=== PATIENT | female | born 1995 | race Asian ===

== ENCOUNTER 2017-04-09 09:49 | Emergency (ER) | payer BC ==
[~2017-04-09] VITALS: Ht 152.4 cm; Wt 60.0 kg
[~2017-04-09 09:49] MED LIST: ACET500C5 PO; DOCU-144 PO
[2017-04-09 09:55] VITALS: Ht 152.4 cm; Wt 60.0 kg
--- NOTE | 2017-04-09 10:16 | ERD ---
ER Documentation Chief Complaint Date/Time DATE: 04/09/17 TIME: 10:13 Chief Complaint lower back abcess HPI 21-year-old female lower back pain and swelling for the past week. She has some redness that is localized. She has never had this before. She denies fevers or chills. ROS All systems reviewed and are negative except as per history of present illness. Medications Home Meds Active Scripts Ibuprofen* (Motrin*) 600 Mg Tab, 600 MG PO Q6, #30 TAB Prov:FRANK COUGHLIN PA-C 04/09/17 Sulfamethoxazole/Trimethoprim* (Bactrim Ds* Tablet) 1 Each Tablet, 1 TAB PO BID , #14 TAB Prov:FRANK COUGHLIN PA-C 04/09/17 Cephalexin* (Keflex*) 500 Mg Capsule, 500 MG PO QID for 7 Days, CAP Prov:FRANK COUGHLIN PA-C 04/09/17 Docusate Sodium* (Colace*) 100 Mg Capsule, 100 MG PO TID, #30 CAP Prov:FRANK COUGHLIN PA-C 07/08/16 Acetaminophen* (Tylophen*) 500 Mg Capsule, 1 CAP PO Q6H Y for PAIN AND OR ELEVATED TEMP, #20 CAP Prov:FRANK COUGHLIN PA-C 07/08/16 Allergies Allergies: Coded Allergies: No Known Allergy (Unverified , 04/09/17) PMhx/Soc Medical and Surgical Hx: pt denies Medical Hx, pt denies Surgical Hx Hx Alcohol Use: No Hx Substance Use: No Hx Tobacco Use: No Smoking Status: Never smoker Physical Exam Vitals Vital Signs Date Time Temp Pulse Resp B/P Pulse Ox O2 Delivery O2 Flow Rate FiO2 04/09/17 09:55 98.1 71 18 111/71 99 Physical Exam General: Well-developed, well-nourished. The patient appears in no acute distress. HEENT: Head is normocephalic, atraumatic. No scleral icterus. Neck: Supple. Nontender. Lungs: Clear to auscultation. Normal air movement. Heart: Regular rate and rhythm. S1 and S2 are normal. No murmurs, gallops, or rubs. Abdomen: Nondistended. Extremities: No clubbing or cyanosis. Moving extremities x 4. No weakness. Neurologic: Alert and oriented 3. No focal deficits. Normal speech and gait. Skin: 4 cm area of induration and fluctuance over the sacral area, tenderness to palpation, there is no streaking. Results 24 hrs Current Medications Medications (Trade) Dose Ordered Sig/Kris Route PRN Reason Start Time Stop Time Status Last Admin Dose Admin Lidocaine (Xylocaine 1% (Mdv) 20 ml) 20 ml ONCE ONCE SC 04/09/17 10:30 04/09/17 10:31 DC Procedures/MDM Abscess Incision and Drainage with irrigation by me: Location: Pilonidal cyst Anesthesia: Local 1% Lidocaine Technique: Irrigated. Disrupted loculations w/ instrumentation Packing: iodoform Complications: Neurovascularly intact post procedure 48 hour wound check. Scar minimization instructions given. Patient's skin symptoms have stabilized while they have been evaluated in the department and are appropriate for outpatient care and work up. Exam and w/u not consistent w/ sepsis, deep space infection, or foreign body. Medical decision makin-year-old female comes in with a pilonidal abscess, that was incised and drained in the emergency department today. There is large amount of purulent material that was removed and packing was placed. He she is to take antibiotics and ibuprofen, it was discussed that this may be a recurrent issue that she has never had this before. I have asked her to follow- up with her primary care doctor to seek a referral to see general surgery for reevaluation. Departure Diagnosis: Primary Impression: Pilonidal abscess Additional Impression: Encounter for incision and drainage procedure Condition: FRANK Evangelista PA-C Apr 09, 2017 10:16
[2017-04-09] MEDS ORDERED: LIDOCAINE 1% (MDV) 20 ML INJ SC ONE (10:30)
[2017-04-09] MEDS ORDERED: IBUP-1542 PO (10:40)
[2017-04-09] MEDS ORDERED: SULF1TAB31 PO (10:40)
[2017-04-09] MEDS ORDERED: CEPH-443 PO (10:40)
== END 2017-04-09 11:09 | disposition home or self-care (01) ==
LOC: FTE 09:49
DX: L05.01 Pilonidal cyst with abscess (principal)
CPT/HCPCS: 10080; Z7502; Z7610

== ENCOUNTER 2017-04-11 12:03 | Emergency (ER) | payer BC ==
[~2017-04-11] VITALS: Ht 167.6 cm; Wt 98.0 kg
[~2017-04-11 12:03] MED LIST changes: +CEPH-443 PO; +IBUP-1542 PO; +SULF1TAB31 PO
[2017-04-11 12:12] VITALS: Ht 167.6 cm; Wt 98.0 kg
--- NOTE | 2017-04-11 14:42 | ERD ---
ER Documentation Chief Complaint Date/Time DATE: 04/11/17 TIME: 13:42 Chief Complaint Patient here for a recheck Pilonidal cyst HPI 21-year-old female presented ED with wound check and dressing change after incision and drainage of her pilonidal abscess 2 days ago. Patient stated that she is continued to have a pain in the area, as well as a lot of drainage from the wound. Denies fever or chills. ROS All systems reviewed and are negative except as per history of present illness. Medications Home Meds Active Scripts Ibuprofen* (Motrin*) 600 Mg Tab, 600 MG PO Q6, #30 TAB Prov:FRANK COUGHLIN PA-C 04/09/17 Sulfamethoxazole/Trimethoprim* (Bactrim Ds* Tablet) 1 Each Tablet, 1 TAB PO BID , #14 TAB Prov:FRANK COUGHLIN PA-C 04/09/17 Cephalexin* (Keflex*) 500 Mg Capsule, 500 MG PO QID for 7 Days, CAP Prov:FRANK COUGHLIN PA-C 04/09/17 Docusate Sodium* (Colace*) 100 Mg Capsule, 100 MG PO TID, #30 CAP Prov:FRANK COUGHLIN PA-C 07/08/16 Acetaminophen* (Tylophen*) 500 Mg Capsule, 1 CAP PO Q6H Y for PAIN AND OR ELEVATED TEMP, #20 CAP Prov:FRANK COUGHLIN PA-C 07/08/16 Allergies Allergies: Coded Allergies: No Known Allergy (Unverified , 04/09/17) PMhx/Soc Medical and Surgical Hx: pt denies Medical Hx Hx Alcohol Use: No Hx Substance Use: No Hx Tobacco Use: No Physical Exam Vitals Vital Signs Date Time Temp Pulse Resp B/P Pulse Ox O2 Delivery O2 Flow Rate FiO2 04/11/17 12:12 98.3 111 20 127/63 98 Physical Exam General: Well-developed, well-nourished, conscious and coherent, in no distress Skin: Warm and dry without rash, good texture and turgor. Wound packing in the incision site of the pilonidal abscess. 10 cm area of induration and fluctuance surrounding the incision site. Head: Normocephalic without evidence of trauma Eyes: Sclera and conjunctivae normal; pupils equal, round, and reactive to light; extraocular movements are intact Chest: Normal AP diameter. Good expansion without retractions. Nontender. Lungs are clear to auscultate bilaterally with good tidal volume Heart: Regular rate and rhythm. No murmur, rub, or gallops heard Extremities: Full range of motion. Good strength bilaterally. No clubbing, cyanosis, or edema. Peripheral pulses are intact. Sensation intact Neuro: Alert and oriented 4, GCS 15. Cranial nerves grossly intact. Motor and sensory exams nonfocal. Moves all extremities. Speech clear. Gait normal Procedures/MDM Previous wound packing was removed. Copious purulent drainage was oozing from the incision. I decided to enlarge the incision and further drain the abscess. Procedure note: Incision and Drainage Verbal consent obtained for incision and drainage of patient's abscess. The area was prepped with Betadine. Lidocaine 1% was infiltrated for local anesthesia. After appropriate anesthesia, incision was made using #11 blade. Copious amount of purulent discharge was drained from the abscess, about 30-50 mL. The abscess was probed for loculation. Iodoform 1/4" packing tape was inserted into the abscess. The wound was then cleaned and dressed. Patient tolerated procedure well. Patient advised to continue take antibiotics as prescribed. Return to the ED in 2 days for packing change and wound check. Disclaimer: Inadvertent spelling and grammatical errors are likely due to EHR/ dictation software use and do not reflect on the overall quality of patient care. Also, please note that the electronic time recorded on this note does not necessarily reflect the actual time of the patient encounter. Departure Diagnosis: Primary Impression: Pilonidal abscess Condition: Stable Patient Instructions: Pilonidal Cyst, Infected (Incision And Drainage) Additional Instructions: Return to this facility in 2 DAYS for a follow-up exam.Return sooner if your condition worsens. CATHI WELCH NP Apr 11, 2017 13:52
== END 2017-04-11 13:22 | disposition home or self-care (01) ==
LOC: FTE 12:03
DX: L05.01 Pilonidal cyst with abscess (principal)
CPT/HCPCS: 10080; Z7502

== ENCOUNTER 2017-04-13 12:49 | Emergency (ER) | END 2017-04-13 14:42 | disposition home or self-care (01) | DX: Z48.01 Encounter for change or removal of surgical wound dressing (principal) ==

== ENCOUNTER 2017-04-15 12:07 | Emergency (ER) | payer BC ==
[~2017-04-15] VITALS: Ht 152.4 cm; Wt 60.0 kg
[2017-04-15 12:09] VITALS: Ht 152.4 cm; Wt 60.0 kg
--- NOTE | 2017-04-15 13:00 | ERD ---
ER Documentation Chief Complaint Date/Time DATE: 04/15/17 TIME: 12:55 Chief Complaint PILONODAL WOUND CHECK THAT WAS DRAINED ON FRIDAY HPI 21-year-old female coming in for wound check of pilonidal cyst. Patient has been taking Bactrim and Keflex without complication. Denies fever. Feels that the abscess is improving and pain. Was seen here 2 days ago. Denies other medical problems. Denies abdominal pain. Denies vomiting. Denies changes in bowel movement. ROS All systems reviewed and are negative except as per history of present illness. Medications Home Meds Active Scripts Ibuprofen* (Motrin*) 600 Mg Tab, 600 MG PO Q6, #30 TAB Prov:FRANK COUGHLIN PA-C 04/09/17 Sulfamethoxazole/Trimethoprim* (Bactrim Ds* Tablet) 1 Each Tablet, 1 TAB PO BID , #14 TAB Prov:FRANK COUGHLIN PA-C 04/09/17 Cephalexin* (Keflex*) 500 Mg Capsule, 500 MG PO QID for 7 Days, CAP Prov:FRANK COUGHLIN PA-C 04/09/17 Docusate Sodium* (Colace*) 100 Mg Capsule, 100 MG PO TID, #30 CAP Prov:FRANK COUGHLIN PA-C 07/08/16 Acetaminophen* (Tylophen*) 500 Mg Capsule, 1 CAP PO Q6H Y for PAIN AND OR ELEVATED TEMP, #20 CAP Prov:FRANK COUGHLIN PA-C 07/08/16 Allergies Allergies: Coded Allergies: No Known Allergy (Unverified , 04/09/17) PMhx/Soc Medical and Surgical Hx: pt denies Medical Hx, pt denies Surgical Hx Hx Alcohol Use: No Hx Substance Use: No Hx Tobacco Use: No Smoking Status: Never smoker Physical Exam Vitals Vital Signs Date Time Temp Pulse Resp B/P Pulse Ox O2 Delivery O2 Flow Rate FiO2 04/15/17 12:09 97.8 114 16 120/61 97 Physical Exam GENERAL: The patient is well-appearing, well-nourished, in no acute distress CHEST: Clear to auscultation bilaterally. There are no rales, wheezes or rhonchi. HEART: Regular rate and rhythm. No murmurs, clicks, rubs or gallops. No S3 or S4. SKIN: Healing pilonidal cyst on midline buttock cleft. Gauze intact. No surrounding erythema. Mild purulence extracted from the wound. Procedures/MDM ER course: Packing removed from pilonidal cyst. Pressure applied to cyst and purulence extracted from the wound. Packing placed. Tegaderm with pressure but dressing applied. Patient tolerated procedure well. MDM: 21-year-old female coming in for a wound check of the pilonidal abscess. I have low suspicion for worsening abscess. Patient's vital signs are stable. I have low suspicion for sepsis. I have low suspicion for deep tracking infection. Patient's exam is non-concerning and shows a healing abscess. Patient is recommended to return in 2 days for an additional wound check and packing at that time. Patient will continue antibiotics as previously indicated. Patient was discharged with strict ER precautions. All questions answered at the time of discharge. Patient understood and complied with plan. Departure Diagnosis: Primary Impression: Pilonidal abscess Condition: Stable Patient Instructions: Wound Care Referrals: BALJEET TERRAZAS (PCP) Additional Instructions: FOLLOW UP WITH YOUR PRIMARY CARE PHYSICIAN TOMORROW.Return to this facility if you are not improving as expected. JOHN MARSH PA-C Apr 15, 2017 13:00
[2017-04-17] MEDS ORDERED: DOXY100T20 PO (12:01)
== END 2017-04-15 12:48 | disposition home or self-care (01) ==
LOC: FTE 12:07
DX: L05.01 Pilonidal cyst with abscess (principal)
CPT/HCPCS: 99281

== ENCOUNTER 2017-04-17 10:50 | Emergency (ER) | END 2017-04-17 12:56 | disposition home or self-care (01) | DX: L05.01 Pilonidal cyst with abscess (principal) ==

== ENCOUNTER 2017-04-19 10:44 | Emergency (ER) | payer BC ==
[~2017-04-19] VITALS: Ht 160 cm; Wt 59.5 kg
[~2017-04-19 10:44] MED LIST changes: +DOXY100T20 PO
[2017-04-19 10:46] VITALS: Ht 160 cm; Wt 59.5 kg
--- NOTE | 2017-04-19 11:28 | ERD ---
ER Documentation Chief Complaint Date/Time DATE: 04/19/17 TIME: 11:24 Chief Complaint wound check on back HPI This is a 21-year-old female presents to the ER for wound check after having a pilonidal abscess. Area was packed multiple times, patient states that she feels a lot better there is no pain there is no surrounding redness and she has not noticed any discharge. Patient has not had any fevers or chills. She is currently taking her doxycycline and has finished Bactrim and Keflex. ROS 12 point review of systems was done, all negative except per HPI. Medications Home Meds Active Scripts Doxycycline Hyclate* (Doxycycline Hyclate*) 100 Mg Tablet.dr, 100 MG PO BID for 10 Days, TAB Prov:CAMILLA BOLES PA-C 04/17/17 Ibuprofen* (Motrin*) 600 Mg Tab, 600 MG PO Q6, #30 TAB Prov:FRANK COUGHLIN PA-C 04/09/17 Sulfamethoxazole/Trimethoprim* (Bactrim Ds* Tablet) 1 Each Tablet, 1 TAB PO BID , #14 TAB Prov:FRANK COUGHLIN PA-C 04/09/17 Cephalexin* (Keflex*) 500 Mg Capsule, 500 MG PO QID for 7 Days, CAP Prov:FRANK COUGHLIN PA-C 04/09/17 Docusate Sodium* (Colace*) 100 Mg Capsule, 100 MG PO TID, #30 CAP Prov:FRANK COUGHLIN PA-C 07/08/16 Acetaminophen* (Tylophen*) 500 Mg Capsule, 1 CAP PO Q6H Y for PAIN AND OR ELEVATED TEMP, #20 CAP Prov:FRANK COUGHLIN PA-C 07/08/16 Allergies Allergies: Coded Allergies: No Known Allergy (Unverified , 04/09/17) PMhx/Soc Medical and Surgical Hx: pt denies Medical Hx, pt denies Surgical Hx History of Surgery: No Anesthesia Reaction: No Hx Neurological Disorder: No Hx Respiratory Disorders: No Hx Cardiac Disorders: No Hx Psychiatric Problems: No Hx Miscellaneous Medical Probl: No Hx Alcohol Use: No Hx Substance Use: No Hx Tobacco Use: No Smoking Status: Never smoker Physical Exam Vitals Vital Signs Date Time Temp Pulse Resp B/P Pulse Ox O2 Delivery O2 Flow Rate FiO2 04/19/17 10:46 98.5 98 18 113/60 100 Physical Exam GENERAL: The patient is well developed and appropriate for usual state of health , in no apparent distress. HEENT: Atraumatic. CHEST: Clear to auscultation bilaterally. There are no rales, wheezes or rhonchi. HEART: Regular rate and rhythm. No murmurs, clicks, rubs or gallops. NEURO: Alert and oriented. SKIN: There is a fundal abscess with packing in it, packing was removed and there was clear to pink discharge expressed. There was no yellow purulent discharge. Procedures/MDM This is a 21-year-old female presents to the ER for wound check. At this time patient's abscess is much better there is no surrounding erythema and when I pulled the packing there was clear pink discharge that was expressed. There was no evidence of purulent or yellow discharge patient does not have any pain around the area she is afebrile and well-appearing. Patient states that she feels much better. I advised patient to continue with oral antibiotics and put bacitracin over the area. Patient is to follow-up with her PCP within 1-2 days or return to ER sooner if symptoms worsen. Patient understands and agrees with plan. I strongly advised patient to see a colorectal surgeon as her abscess was very deep and required a lot of packing, I explained to patient that this may return and she does run the risk of fistula formation if she does not have proper followup. At this time suspicion for deep space infection is low as patient is extremely well-appearing afebrile hand area is healing appropriately. Departure Diagnosis: Primary Impression: Encounter for wound re-check Condition: Stable Patient Instructions: Wound Care Referrals: BALJEET TERRAZAS (PCP) Additional Instructions: Call your primary care doctor TOMORROW for an appointment during the next 1-2 days.See the doctor sooner or return here if your condition worsens before your appointment time. JENNIFER DEL REAL Apr 19, 2017 11:28
== END 2017-04-19 11:34 | disposition home or self-care (01) ==
LOC: FTE 10:44
DX: Z48.01 Encounter for change or removal of surgical wound dressing (principal)
CPT/HCPCS: 99281